=== PATIENT | female | born 1985 | race Caucasian/White ===

== ENCOUNTER 2016-11-22 03:29 | Emergency (ER) | payer BC ==
[~2016-11-22] VITALS: Ht 170.2 cm; Wt 114.5 kg
[~2016-11-22 03:29] MED LIST: BCPILLS PO; POLY335019 PO; PRENTAB26 PO; PXL/10 PO
[2016-11-22 03:32] VITALS: Ht 170.2 cm; Wt 114.5 kg
[2016-11-22] MEDS ORDERED: DiphenhydrAMINE HCL 50 MG/ML VIAL IV STA (03:42)
[2016-11-22] MEDS ORDERED: SODIUM CHLORIDE 0.9% 1000ML 1,000 ML IV STA (03:42)
[2016-11-22 04:01] LABS: BASO % 0.8 %; BASO ABS # 0.06 K/uL (0-0.2); COMPLETE YES; EOS % 4.6 %; HEMATOCRIT 42.9 % (37-47); IG% 0.1 %; LYMPH % 41.3 %; LYMPH ABS # 3.29 K/uL (1.2-3.4); MEAN CORPUSCULAR HGB CONC 34.5 g/dl (32-36); MEAN PLATELET VOLUME 10.4 fL (7.4-10.4); MONO % 6.3 %; NEUT % 46.9 %; PLATELET COUNT 267 K/uL (130-400); RED BLOOD COUNT 4.93 M/uL (4.2-5.4); WHITE BLOOD COUNT 7.97 K/uL (4.8-10.8)
[2016-11-22 04:19] LABS: BUN/CREATININE RATIO 16.9 (10-20); CALCIUM 8.3 mg/dl (8.5-10.1); CREATININE 0.81 mg/dl (0.60-1.20); MAGNESIUM 2.2 mg/dl (1.8-2.4); POTASSIUM 3.8 mmol/L (3.5-5.1)
[2016-11-22 04:23] LABS: URINE APPEARANCE CLEAR (CLEAR); URINE BILIRUBIN NEG (NEG); URINE COLOR DK YELLOW; URINE NITRITE NEG (NEG); URINE SPECIFIC GRAVITY 1.026 (1.000-1.030); UROBILINOGEN NEG (NEG); ZZUR CULT IF INDIC CLEAN CATCH NO
[2016-11-22 04:25] LABS: MANUAL MICROSCOPIC REQUIRED? YES; REVIEW REQ? NO
[2016-11-22 04:30] LABS: ALB/GLOB RATIO 1.1 (0.9-2); CKMB/CK RATIO 0.9 (0-3.0); THYROID STIMULATING HORMONE 3.8 uIu/ml (0.300-4.500)
[2016-11-22 04:34] LABS: URINE MUCUS PRESENT (NONE PRSENT)
--- NOTE | 2016-11-22 04:34 | EMERGENCY ROOM VISIT NOTE ---
History First contact with patient: 03:36 Chief Complaint: ALLERGIC REACTION Stated Complaint: ALLERGIC REACTION Nursing Triage Summary: Pt woke up around 0200. Pt c/o stuttering and slurred speech. No numbness/tingling, some weakness to hands. Pt had similar hx year ago, dystonic reaction to Zoloft. Pt has started Paxil within the last 60 days. Pt took miralax today as well. History of Present Illness The patient is a 31 year old female who presents to the Emergency Department via EMS for evaluation of a possible medication reaction. The patient reports that she awoke from sleep and was stuttering her speech and reports that her upper and lower extremities were "clamped down." She had experienced this one time previously and it was thought to be related to Zoloft use. She had been taken off his Zoloft for several months. She was started on Paxil approximately 2 months ago. She isn't taking this medication without issue. Patient denies any new medications more recent than the Paxil. She reports that she cannot move her upper and lower extremities as they feel "clamped down and numb." She denies any pain rating her discomfort a 0/10. She reports no current headaches, dizziness, lightheadedness, blurry vision, double vision, slurred speech, chest pain, palpitations, shortness of breath, nausea, vomiting , or chance for . Review of Systems A complete 10-point Review of Systems was discussed with the patient, with pertinent positives and negatives listed in the History of Present Illness. All remaining Review of Systems questions can be considered negative unless otherwise specified. Past Medical/Surgical History Medical Problems: (1) Depression Family History Patient reports no known family medical history. Social History Smoking Status: Never Smoker Smokeless Tobacco Use: No Drug Use: none Marital Status: Housing Status: lives with family Occupation Status: employed Current/Historical Medications Scheduled Control Pills ( Control Pills), 1 TAB PO DAILY Multivit/Min/Iron/Fol Ac/Pren ( Vitamin), 1 TAB PO DAILY Paroxetine (Paroxetine HCl), 10 MG PO DAILY Scheduled PRN Polyethylene Glycol 3350 (Miralax), 17 GM PO DAILY PRN for Constipation Allergies Coded Allergies: Amoxicillin (Verified Allergy, Unknown, `, 10/23/15) Clavulanic Acid (Verified Allergy, Unknown, `, 10/23/15) Sertraline (Verified Allergy, Unknown, Stroke like symptoms, 09/12/16) Sulfa Antibiotics (Verified Allergy, Unknown, ., 10/23/15) Minocycline (Verified Adverse Reaction, Mild, ELEVATED LIVER FUNCTION, 10/23/15) Physical Exam Vital Signs Date Time Temp Pulse Resp B/P Pulse Ox O2 Delivery O2 Flow Rate FiO2 11/22/16 05:18 36.7 61 16 112/74 95 11/22/16 05:04 61 16 95 Room Air 11/22/16 04:58 112/74 11/22/16 04:34 66 97 11/22/16 04:29 62 16 98 Room Air 11/22/16 04:28 123/75 11/22/16 03:59 78 16 133/87 11/22/16 03:59 Room Air 11/22/16 03:35 75 11/22/16 03:32 97 Room Air 11/22/16 03:32 128/98 11/22/16 03:32 36.7 81 18 128/98 97 Room Air Pain Rating (0-10): 0 Physical Exam VITAL SIGNS - Vital signs and nursing notes were reviewed. GENERAL - 31-year-old female appearing her stated age who is in no acute distress. Stuttering speech, but able to answer questions appropriately otherwise. HEAD - Normocephalic, Atraumatic. No Almanzar's Sign or Raccoon's Eyes. No depressed skull fractures palpable. EYES - PERRL with EOMI bilaterally. Sclera anicteric. Palpebral conjunctiva pink and moist with no injection noted. EARS - No deformities of external structures noted on gross examination bilaterally. No pain elicited with palpation of the tragus bilaterally. External auditory canals without discharge or otorrhea. Tympanic membranes pearly mcgregor without retraction or bulging. NOSE - Midline and without cyanosis. No epistaxis or purulent drainage noted. Septum midline without deviation or septal hematoma noted. MOUTH/OROPHARYNX - Without perioral cyanosis. Buccal mucosa pink and moist and without leukoplakia. Tongue midline with equal elevation of palate bilaterally. No tonsillar hypertrophy, erythema, or exudates noted. Good dentition noted. NECK - Neck with FROM. Supple to palpation. No lymphadenopathy noted. No nuchal rigidity. LUNGS - Chest wall symmetric without accessory muscle use, intercostals retractions, or central cyanosis. Normal vesicular breath sounds CTA B/L. No wheezes, rales, or rhonchi appreciated. CARDIAC - RRR with S1/S2. No murmur, rubs, or gallops appreciated. ABDOMEN - Abdominal contour obese and without pulsations or visible masses. BS normoactive all four quadrants. No tenderness, palpable masses, hepatosplenomegaly, or ascites noted. EXTREMITIES - No pretibial edema present. +3/5 radial and dorsalis pedis pulses palpated throughout. No tremors noted to the upper or lower extremities. Patient appears to be clamped down in the bilateral upper and lower extremities. Her extremities are removed easily through passive range of motion. She has +1/5 strength appreciated bilaterally of the upper and lower extremities. NEUROLOGIC - Cranial nerves II through XII grossly intact. Sensory intact to light touch throughout. Patellar reflexes +2/4. PSYCH - A&Ox3 and cooperates fully with examiner. Pt is very pleasant and interacts well with examiner. Stuttering speech, but otherwise well communicative. Medical Decision & Procedures ER Provider Diagnostic Interpretation: Chest x-ray was obtained and reviewed by myself. No acute cardiopulmonary processes or areas of infiltrate appreciated per my interpretation. Radiologist 's impression unavailable at the time of dictation. Laboratory Results 11/22/16 03:50 Red Blood Count 4.93, Mean Corpuscular Volume 87.0, Mean Corpuscular Hemoglobin 30.0, Mean Corpuscular Hemoglobin Concent 34.5, Mean Platelet Volume 10.4, Neutrophils (%) (Auto) 46.9, Lymphocytes (%) (Auto) 41.3, Monocytes (%) (Auto) 6.3, Eosinophils (%) (Auto) 4.6, Basophils (%) (Auto) 0.8, Neutrophils # (Auto) 3.74, Lymphocytes # (Auto) 3.29, Monocytes # (Auto) 0.50, Eosinophils # (Auto) 0.37, Basophils # (Auto) 0.06 11/22/16 03:50 Test 11/22/16 03:50 11/22/16 04:10 11/22/16 04:15 White Blood Count 7.97 K/uL (4.8-10.8) Red Blood Count 4.93 M/uL (4.2-5.4) Hemoglobin 14.8 g/dL (12.0-16.0) Hematocrit 42.9 % (37-47) Mean Corpuscular Volume 87.0 fL (80-100) Mean Corpuscular Hemoglobin 30.0 pg (25-34) Mean Corpuscular Hemoglobin Concent 34.5 g/dl (32-36) Platelet Count 267 K/uL (130-400) Mean Platelet Volume 10.4 fL (7.4-10.4) Neutrophils (%) (Auto) 46.9 % Lymphocytes (%) (Auto) 41.3 % Monocytes (%) (Auto) 6.3 % Eosinophils (%) (Auto) 4.6 % Basophils (%) (Auto) 0.8 % Neutrophils # (Auto) 3.74 K/uL (1.4-6.5) Lymphocytes # (Auto) 3.29 K/uL (1.2-3.4) Monocytes # (Auto) 0.50 K/uL (0.11-0.59) Eosinophils # (Auto) 0.37 K/uL (0-0.5) Basophils # (Auto) 0.06 K/uL (0-0.2) RDW Standard Deviation 41.0 fL (36.4-46.3) RDW Coefficient of Variation 12.8 % (11.5-14.5) Immature Granulocyte % (Auto) 0.1 % Immature Granulocyte # (Auto) 0.01 K/uL (0.00-0.02) Anion Gap 8.0 mmol/L (3-11) Est Creatinine Clear Calc Drug Dose 131.5 ml/min Estimated GFR () 112.2 Estimated GFR (Non- 96.8 BUN/Creatinine Ratio 16.9 (10-20) Calcium Level 8.3 mg/dl (8.5-10.1) Magnesium Level 2.2 mg/dl (1.8-2.4) Total Bilirubin 0.3 mg/dl (0.2-1) Aspartate Amino Transf (AST/SGOT) 9 U/L (15-37) Alanine Aminotransferase (ALT/SGPT) 24 U/L (12-78) Alkaline Phosphatase 87 U/L (45-117) Total Creatine Kinase 81 U/L (26-192) Creatine Kinase MB 0.7 ng/ml (0.5-3.6) Creatine Kinase MB Ratio 0.9 (0-3.0) Total Protein 7.4 gm/dl (6.4-8.2) Albumin 3.8 gm/dl (3.4-5.0) Globulin 3.6 gm/dl (2.5-4.0) Albumin/Globulin Ratio 1.1 (0.9-2) Thyroid Stimulating Hormone (TSH) 3.800 uIu/ml (0.300-4.500) Urine Color DK YELLOW Urine Appearance CLEAR (CLEAR) Urine pH 5.0 (4.5-7.5) Urine Specific [place] 1.026 (1.000-1.030) Urine Protein NEG (NEG) Urine Glucose (UA) NEG (NEG) Urine Ketones NEG (NEG) Urine Occult Blood TRACE (NEG) Urine Nitrite NEG (NEG) Urine Bilirubin NEG (NEG) Urine Urobilinogen NEG (NEG) Urine Leukocyte Esterase NEG (NEG) Urine WBC (Auto) /hpf (0-5) Urine RBC (Auto) /hpf (0-4) Urine Hyaline Casts (Auto) /lpf (0-5) Urine Epithelial Cells (Auto) /lpf (0-5) Urine Bacteria (Auto) (NEG) Urine RBC 0-4 /hpf (0-4) Urine WBC 1-5 /hpf (0-5) Urine Epithelial Cells >30 /lpf (0-5) Urine Bacteria NEG (NEG) Urine Mucus PRESENT (NONE PRSENT) Urine Opiates Screen NEG (NEG) Urine Methadone, Qualitative NEG (NEG) Urine Barbiturates NEG (NEG) Urine Phencyclidine (PCP) Level NEG (NEG) Ur Amphetamine/Methamphetamine NEG (NEG) MDMA (Ecstasy) Screen NEG (NEG) Urine Benzodiazepines Screen NEG (NEG) Urine Cocaine Metabolite NEG (NEG) Urine Marijuana (THC) NEG (NEG) Urine Test NEG (NEG) Medications Administered Medications (Trade) Dose Ordered Sig/David Route Start Time Stop Time Status Last Admin Dose Admin Sodium Chloride (Nss 1000ml) 1,000 ml @ 999 mls/hr Q1H1M STAT IV 11/22/16 03:42 11/22/16 04:42 DC 11/22/16 04:05 999 MLS/HR Diphenhydramine HCl (Benadryl Inj) 25 mg NOW STAT IV 11/22/16 03:42 11/22/16 03:45 DC 11/22/16 04:05 25 MG Procedure Patient was placed on the playground monitor and monitored throughout the entire extent of their stay. In addition, the patient's pulse oximetry was monitored throughout the entire stay. Any abnormalities or aberrancies were addressed appropriately. ECG Indication: toxicologic Rate (beats per minute): 67 Rhythm: normal sinus Findings: no acute ischemic change, no ectopy Change: no significant change (from 10/23/2015.) ED Course Patient was seen and evaluated by myself. Previous emergency department visit notes were reviewed. EKG and chest x-rays were obtained. Labs were drawn, saline lock in place. The patient was hydrated with a 1000 mL normal saline bolus. She was treated with 25 mg Benadryl intravenously. On review the patient, she has complete resolve of symptoms at this point. She does report that she was having some resolve of symptoms prior to the administration of the Benadryl. She reports complete resolve at this point. The patient is speaking fluently without stuttering. She has full strength upper and lower extremity's bilaterally. Laboratory results demonstrate no acute leukocytosis, worrisome anemia, or bandemia. The patient has no significant electrolyte abnormalities. Cardiac enzymes are negative. Urine drug screen is negative. Urinalysis is unremarkable. Urine is negative. I had a lengthy discussion with the patient regarding symptoms and management at this point. She will contact her primary care provider to wean her off the Paxil. The patient had no return of symptoms. She was educated on worrisome symptoms for return visit to the emergency department. Patient discharged home in good condition. Medical Decision Given the patient's presentation and stated complaints, I did elect to perform the above-mentioned workup. The patient presents today with stuttering as well as complaints of tetany to the upper and lower extremities. She had experienced this one time previously approximately one year ago. She has no fever leukocytosis. Her symptoms had started to resolve prior to administration of Benadryl and then completely resolved after the Benadryl. The patient had a similar reaction to Zoloft. It is concerning as the patient is been taking Paxil for the last 2 months and now has symptoms consistent with likely dystonic reaction. Neurologically, her exam is completely unremarkable other than the stuttering and the tetany. Her reflexes are intact despite this. After menstruation of Benadryl, the patient's exam is completely unremarkable. I do not feel that imaging studies of the head are necessary at this point. Certainly the differential, seizure-like activity may be considered , however it should be remembered that the patient did have a reaction to an SSRI as well. Regardless, the patient will follow closely with her primary care provider from today's visit. I do not feel that imaging studies the head or further evaluation is necessary in the emergency setting. The patient will be careful as she did receive a dose of Benadryl and is breast-feeding, however her child 16 months old which should not provide much issue. The patient will return to the emergency department in the setting of any changing or worsening symptoms. Patient discharged home afebrile and in good condition. In the evaluation and treatment of this patient, the following differential diagnoses were considered: Seizure, Somatization, Migraine Headache, Intracranial Hemorrhage, Subdural Hematoma, Subarachnoid Hemorrhage, Cerebral Aneurysm, Temporal/Giant Cell Arteritis, Tension Headache, Meningitis, Encephalitis, or Hydrocephalus. Impression Primary Impression: Dystonic drug reaction Additional Impression: Adverse reaction to drug Departure Information Dispostion Home / Self-Care Condition GOOD Referrals Mj Forde M.D. (PCP) Patient Instructions A Signature Page, ED Drug React Dystonic Adverse, [facility] Additional Instructions You have been seen in the emergency department today for a possible dystonic reaction to your Paxil. Please contact your primary care provider to help wean you off of this medication. You should take Benadryl (diphenhydramine) 25-50 mg orally every 4-6 hours for the next 5-7 days. This medication is [id number] and you will NOT need a prescription to purchase this at your local pharmacy. You should continue taking the Benadryl for the COMPLETION of the 5-7 days. This is to prevent a rebound allergic reaction in the event that allergens are still present in your system. For pain control, you can use the following [id number] medicines (if >12 yo): - Regular strength (325mg/tab) Tylenol (acetaminophen) 2 tabs every 4-6 hours as needed. Do not exceed 12 tablets in a 24 hour period. Avoid taking more than 4 grams (4000 mg) of Tylenol per day. This includes any other sources of acetaminophen you may take on a regular basis. - Regular strength (200 mg/tab) Advil (ibuprofen) 1-2 tabs every 4-6 hours as needed. Do not exceed a dose of 3200 mg per day. Please contact your primary care provider to help wean you off of your Paxil. Please follow-up with your primary care provider next week for recheck. Return to the emergency department for any changing or worsening symptoms.
[2016-11-22 04:35] LABS: URINE BACTERIA NEG (NEG); URINE RBC 0-4 /hpf (0-4)
[2016-11-22 04:48] LABS: BENZODIAZEPINE, URINE NEG (NEG); COCAINE,URINE NEG (NEG); PHENCYCLIDINE, URINE NEG (NEG)
[2016-11-22 05:18] VITALS: BP 112/74; PULSE 61; TEMP 36.7; O2SAT 95
--- NOTE | 2016-11-22 08:34 | DIAGNOSTIC IMAGING REPORT ---
CHEST ONE VIEW PORTABLE CLINICAL HISTORY: Chest pain COMPARISON STUDY: Chest radiograph October 23, 2015. FINDINGS: Lung volumes are normal. There is no consolidation. There is no pneumothorax or pleural effusion. Borderline enlargement of the cardiac silhouette is unchanged. There is no evidence of pulmonary edema. IMPRESSION: 1. No acute findings. 2. No significant change in borderline enlargement of the cardiac silhouette. Electronically signed by: Kenny Aguillon M.D. 11/22/2016 8:32 AM Dictated Date/Time: 11/22/2016 8:31 AM
== END 2016-11-22 05:18 | disposition home or self-care (01) ==
LOC: C.EDA 03:29 → EDBD 03:29 → C.EDA 05:18
DX: T88.7XXA Unspecified adverse effect of drug or medicament, initial encounter (principal); R47.81 Slurred speech; G24.09 Other drug induced dystonia